=== PATIENT | female | born 1965 | race Caucasian/White ===

== ENCOUNTER 2019-03-26 13:56 | Observation (INO) | payer OTHER ==
[~2019-03-26] VITALS: Ht 152.4 cm; Wt 136.8 kg
[2019-03-26] MEDS ORDERED: SUBOXONE 8 MG-1 EAC1 SL (14:11)
[2019-03-26] MEDS ORDERED: GABAPENTIN800 MG PO (14:11)
[2019-03-26] MEDS ORDERED: METOPROLOL SUC100 MG PO (14:12)
[2019-03-26] MEDS ORDERED: CELEXA20 MG PO (14:12)
[2019-03-26] MEDS ORDERED: LOSARTAN POTASS25 MG PO (14:13)
[2019-03-26] MEDS ORDERED: ALEVE220 M1 PO (14:13)
[2019-03-26] MEDS ORDERED: NORTRIPTYLINE H50 MG PO (20:59)
[2019-03-27] MEDS ORDERED: ULTRAM50 MG PO (09:57)
[2019-03-27] MEDS ORDERED: TYLENOL EXTRA500 MG PO (09:58)
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
== END 2019-03-27 13:55 | disposition home or self-care (01) ==
LOC: ED 13:56 → EDBD 13:58 → MS 13:59
PROVIDERS: ADMIT Colon & Rectal Surgery
DX: S22.21XA Fracture of manubrium, initial encounter for closed fracture (principal); E66.9 Obesity, unspecified; S06.0X9A Concussion with loss of consciousness of unspecified duration, initial encounter; S30.1XXA Contusion of abdominal wall, initial encounter; M79.7 Fibromyalgia; Q78.0 Osteogenesis imperfecta; G89.29 Other chronic pain; I95.9 Hypotension, unspecified; V54.5XXA Driver of pick-up truck or van injured in collision with heavy transport vehicle or bus in traffic accident, initial encounter; Y92.411 Interstate highway as the place of occurrence of the external cause; Z79.1 Long term (current) use of non-steroidal anti-inflammatories (NSAID); Z88.8 Allergy status to other drugs, medicaments and biological substances; Z79.891 Long term (current) use of opiate analgesic; Z79.899 Other long term (current) drug therapy; Z68.43 Body mass index [BMI] 50.0-59.9, adult
CPT/HCPCS: 36415; 71045; 71260; 72170; 74177; 80053; 81001; 83690; 85025; 96361; 96376; 99285-25; G0378; J1885; J3010; J7030; Q9967